=== PATIENT | male | born 1990 | race American Indian/Alaskan Native ===

== ENCOUNTER 2021-12-30 07:43 | Emergency (ER) | payer SELFPAY ==
[2021-12-30 08:03] VITALS: BP 138/75
== END 2021-12-30 16:44 | disposition left against medical advice (07) ==
LOC: ED 07:43
DX: K08.89 Other specified disorders of teeth and supporting structures (principal); Z53.21 Procedure and treatment not carried out due to patient leaving prior to being seen by health care provider